=== PATIENT | female | born 1990 | race Caucasian/White ===

== ENCOUNTER 2017-07-29 16:11 | Day surgery (SDC) | payer BC, SELFPAY ==
[2017-07-29 16:41] VITALS: BMI 34.0
[2017-07-29 16:55] VITALS: BP 124/68; TEMP 98.8
--- NOTE | 2017-07-29 17:30 | PDOC.LDHP ---
Labor and Delivery H&P Chief complaint: decreased movement, other HPI: 27 year old W with no HX PTB arrives as a patient of Dr Alfonso for decresaed FM eval. No CTX, no LOF, no trauma. No PIH sxs. Last active FM at 1315 or so. Has HX GDM on oral metformin 500mg po BID. States sugars under good control. Current gestational age (weeks): 36 (6 days) Due date: 08/20/17 Dating criteria: last menstrual period Current complications: gestational diabetes Past Medical History: HX "calcium stones (renal) Current medications: other (matfromin 500 BID) Previous surgical history: other (Tonsills 2014) Allergies/Adverse Reactions: Allergies Allergy/AdvReac Type Severity Reaction Status Date / Time No Known Allergies Allergy Verified 07/29/17 16:57 Social history: none - Physical Exam Vital signs reviewed and normal: yes General: NAD Heart: RRR Lungs: CTAB Abdomen: gravid FHT: category 1 [place] contractions every: low amplitude contactions about every 6-8 min - Assessment Decreased FM at 36.6 weeks, GDM HX (oral meds). Audible FM heard on dopller during NST. NST reactive with baseline in 150s. Accels present. - Plan Plan: observation in L&D (NST continuation although already meets reactive criteria. RN to assess CX Kick count info given. Defer BPP as NST is reactive.)
--- NOTE | 2017-07-29 18:04 | PDOC.EVN ---
Event Note - Event Note Event Note: @1805: Cat 1 dtrip. CX was 1.5 cm. No evidence labor or issue. Vitals stable. OK for outpatient care.
== END 2017-07-29 18:00 | disposition home or self-care (01) ==
LOC: L&D/OP 16:11
PROVIDERS: ATTEND Obstetrics & Gynecology
DX: O36.8130 Decreased fetal movements, third trimester, not applicable or unspecified (principal); O24.419 Gestational diabetes mellitus in pregnancy, unspecified control; Z3A.36 36 weeks gestation of pregnancy; Z79.84 Long term (current) use of oral hypoglycemic drugs; Z79.899 Other long term (current) drug therapy; Z87.442 Personal history of urinary calculi; Z87.891 Personal history of nicotine dependence
CPT/HCPCS: 59025

== ENCOUNTER 2017-08-03 12:42 | Inpatient (IN) | payer BC ==
[2017-08-03 14:01] VITALS: BMI 34.1
[2017-08-03] MEDS ORDERED: Promethazine HCl 25 MG/ML VIAL IM PRN ×2 (14:11→17:52)
[2017-08-03] MEDS ORDERED: Ibuprofen 800 MG TAB PO PRN (14:11)
[2017-08-03] MEDS ORDERED: Lidocaine 1% (PF) 30 ML VIAL SC PRN (14:11)
[2017-08-03] MEDS ORDERED: LR / Pitocin 40 units/1000 ml 1,000 ML IV PRN (14:11)
[2017-08-03] MEDS ORDERED: Ondansetron HCl/PF 4 MG/2 ML Vial IVP PRN ×3 (14:11→21:35)
[2017-08-03] MEDS ORDERED: Acetaminophen/Codeine 30-300mg Tablet PO PRN ×4 (14:11→21:35)
[2017-08-03] MEDS ORDERED: LR 500 ML/Oxytocin 10 units 500 ML IV SCH ×2 (14:15)
--- NOTE | 2017-08-03 14:16 | PDOC.LDHP ---
Labor and Delivery H&P Chief complaint: contractions HPI: Pt is a 27yo @ 37+ weeks w spont onset of labor. Seen in clinic this AM was 4cm, now 6cm. Desires low intervention. Current gestational age (weeks): 37 Due date: 08/20/17 Grav: 2 Para: 1 OB History Details: x 1 in 2008 Current complications: gestational diabetes (A2 controlled w Metformin BID) Abnormal US findings: No Past Medical History: none Current medications: pre-marga vitamins, other (Metformin 500mg BID) Previous surgical history: none Allergies/Adverse Reactions: Allergies Allergy/AdvReac Type Severity Reaction Status Date / Time No Known Allergies Allergy Verified 08/03/17 13:15 Social history: none - Physical Exam Vital signs reviewed and normal: yes General: breathing through contractions Lungs: nonlabored breathing Abdomen: gravid Extremeties: no edema FHT: category 1 [place] contractions every: 3 - Vaginal Exam cm dilated: 6 Effacement: 75% - OB Labs Blood type: O RH: positive Antibody Screen: negative HIV: negative RPR: negative HEPSAg: negative 1 hour GCT: positive 3 hour GTT: positive GBS: negative Rubella: immune - Assessment L&D Assessment: term patient in labor - Plan Plan: admit to L&D, labor augmentation if indicated, informed consent obtained, anesthesia consult for pain management (if desired)
[2017-08-03 14:22] LABS: Hematocrit 34.9 % (36.0-47.0); Mean Platelet Volume 10.4 fL (7.4-10.4); Red Blood Cell (RBC) Count 4.34 mill/uL (4.20-5.40); White Blood Cell (WBC) Count 9.2 thou/uL (4.8-10.8)
--- NOTE | 2017-08-03 17:01 | PDOC.LDPN ---
Labor & Delivery Progress Note - Subjective Subjective: painful contractions - Objective Vital signs reviewed and normal: yes General: breathing through contractions Dilation: 7 Effacement: 75% Station: -1 FHT: category 1 [place] contractions every: 3 AROM: clear fluid - Assessment (1) 37 weeks gestation of Code(s): Z3A.37 - 37 WEEKS GESTATION OF Current Visit: Yes Status : Acute Plan: continue plan of care
[2017-08-03] MEDS ORDERED: Fentanyl 4 mcg/Marc 0.1% Cadd 100 ML ONE (17:23)
[2017-08-03] MEDS ORDERED: Acetaminophen 325 MG TAB PO PRN (17:52)
[2017-08-03] MEDS ORDERED: diphenhydrAMINE 50 MG/ML VIAL IVP PRN (17:52)
[2017-08-03] MEDS ORDERED: Lactated Ringer's 500 ML IV PRN (17:52)
[2017-08-03] MEDS ORDERED: Naloxone HCl 0.4 mg/ml Vial IVP PRN ×2 (17:52)
[2017-08-03] MEDS ORDERED: ePHEDrine/0.9% NaCl/PF SYRINGE 50 mg/10 ml SLOW IVP PRN (17:52)
[2017-08-03] MEDS ORDERED: Eucerin (Mineral Oil/Petrolatum,White) 30 gm Jar TOP PRN (17:52)
[2017-08-03] MEDS ORDERED: Communication Order-Pharmacy FS SCH (18:00)
[2017-08-03] MEDS ORDERED: Fentanyl 4mcg/Marcaine 0.1% Cassette 100 ML EPIDURAL SCH (18:00)
[2017-08-03] MEDS ORDERED: Lactated Ringer's 1,000 ML IV SCH (18:45)
[2017-08-03] MEDS ORDERED: Lidocaine 1% (PF) 30 ML VIAL ONE (18:46)
--- NOTE | 2017-08-03 19:12 | PDOC.OPDEL ---
OB Operative/Delivery Note Delivery Dr/Surgeon: Kaden Pre-Delivery Diagnosis: active labor Procedure/Post Delivery Dx: spontaneous vaginal delivery Weeks gestation: 37 Anesthesia: epidural - Findings A Sex: female - 1 min: 9 - 5 min: 10 - Additional Findings/Plan Placenta delivered: spontaneous Repaired Obstetrical Laceration: none Post delivery plan: routine recovery
[2017-08-03] MEDS ORDERED: Milk Of Magnesia 30 ML UDCUP PO PRN (21:35)
[2017-08-03] MEDS ORDERED: Bisacodyl 10 MG SUPP PR PRN (21:35)
[2017-08-03] MEDS ORDERED: Benzocaine/Menthol 20-0.5% 60 ML CAN TOP PRN (21:35)
[2017-08-03] MEDS ORDERED: LR / Pitocin 40 units/1000 ml 1,000 ML IV SCH (21:35)
[2017-08-03] MEDS ORDERED: Lanolin Ointment 7 GM TUBE TOP PRN (21:35)
[2017-08-03] MEDS ORDERED: Preparation H Ointment 28 GM TUBE PR PRN (21:35)
[2017-08-03] MEDS ORDERED: diphenhydrAMINE 25 MG CAP PO PRN (21:35)
[2017-08-04] MEDS: Docusate (Surfak) 240 MG CAP PO SCH ×3 (01:59→21:47)
[2017-08-04 05:45] LABS: Hematocrit 33.4 % (36.0-47.0); Mean Platelet Volume 9.7 fL (7.4-10.4); Red Blood Cell (RBC) Count 4.16 mill/uL (4.20-5.40); White Blood Cell (WBC) Count 12.3 thou/uL (4.8-10.8)
[2017-08-04] MEDS: Ibuprofen 800 MG TAB PO SCH ×4 (06:23→21:47)
--- NOTE | 2017-08-04 09:23 | PDOC.PP ---
Post Progress Note Post Day #: 1 Subjective: PPD #1 doing well, desires DC home later today if possible, otherwise tomorrow AM. No concerns, breast feeding well. PO intake tolerated: yes Flatus: yes Ambulation: yes Vital Signs (12 hours) Temp Pulse Resp BP 08/04/17 08:00 98.9 F 98 18 123/58 L 08/04/17 03:58 98.6 F 117 H 20 129/68 08/04/17 00:15 98.4 F 118 H 20 114/60 08/03/17 23:15 98.5 F 115 H 20 110/62 08/03/17 22:15 98.9 F 115 H 22 H 118/51 L Weight Weight 199 lb - Physical Examination Respiratory: non-labored breathing Abdominal: no distention Fundus firm & at: below umb Skin: no rash Neurological: no gross focal deficits Psychiatric: A&Ox3, normal affect Result Diagrams: 08/04/17 05:01 Additional Labs: Post Labs Blood Type O POSITIVE 08/03/17 13:30 Hep Bs Antigen Non-Reactive S/CO (NonReactive) 08/03/17 13:30 (1) 37 weeks gestation of Code(s): Z3A.37 - 37 WEEKS GESTATION OF Status: Acute (2) Vaginal delivery Code(s): O80 - ENCOUNTER FOR FULL-TERM UNCOMPLICATED DELIVERY Status: Acute - Assessment/Plan PPD Doing well no concerns, poss DC today vs tomorrow AM.
[2017-08-04] MEDS: Prenatal Vitamin 1 TAB PO SCH (09:26)
[2017-08-04] MEDS: Ferrous Sulfate 325 MG TAB PO SCH ×2 (09:26→17:48)
[2017-08-04] MEDS ORDERED: Bupivacaine/Epinephrine 0.25% 30 ML VIAL ONE (10:58)
[2017-08-05] MEDS: Ibuprofen 800 MG TAB PO SCH (05:55)
[2017-08-05 07:51] VITALS: BP 102/50; TEMP 98.2
[2017-08-05] MEDS: Docusate (Surfak) 240 MG CAP PO SCH (08:18)
[2017-08-05] MEDS: Prenatal Vitamin 1 TAB PO SCH (08:18)
[2017-08-05] MEDS: Ferrous Sulfate 325 MG TAB PO SCH (08:19)
--- NOTE | 2017-08-05 08:26 | PDOC.PP ---
Post Progress Note Post Day #: 2 Subjective: no concerns. PO intake tolerated: yes Flatus: yes Ambulation: yes Vital Signs (12 hours) Temp Pulse Resp BP 08/05/17 07:49 98.2 F 89 18 102/50 L Weight Weight 199 lb - Physical Examination Respiratory: non-labored breathing Abdominal: no distention Extremities: negative homans (B) Neurological: no gross focal deficits Psychiatric: A&Ox3, normal affect Result Diagrams: 08/04/17 05:01 Additional Labs: Post Labs Blood Type O POSITIVE 08/03/17 13:30 Hep Bs Antigen Non-Reactive S/CO (NonReactive) 08/03/17 13:30 (1) 37 weeks gestation of Code(s): Z3A.37 - 37 WEEKS GESTATION OF Status: Acute (2) Vaginal delivery Code(s): O80 - ENCOUNTER FOR FULL-TERM UNCOMPLICATED DELIVERY Status: Acute - Assessment/Plan PPD2 doing well, no concerns, DC home today.
== END 2017-08-05 12:55 | disposition home or self-care (01) | DRG 775 ==
LOC: L&D/OP 12:42 → L&D 13:23 → 3SW 22:24
PROVIDERS: ADMIT Obstetrics & Gynecology; ATTEND Obstetrics & Gynecology
PROC: 10E0XZZ Delivery of Products of Conception, External Approach (ICD-10-PCS; principal; 2017-08-03)
PROC: 4A0HXCZ Measurement of Products of Conception, Cardiac Rate, External Approach (ICD-10-PCS; 2017-08-03)
DX: O24.425 Gestational diabetes mellitus in childbirth, controlled by oral hypoglycemic drugs (principal); Z37.0 Single live birth; Z3A.37 37 weeks gestation of pregnancy
CPT/HCPCS: 36415; 36416; 51702; 85027; 87340; 99282; J2001

== ENCOUNTER 2017-08-31 08:05 | Emergency (ER) | payer BC ==
[2017-08-31 08:58] LABS: Bilirubin Negative (Negative); Blood, Urine Large (Negative); Clarity TURBID (Clear); Glucose, Urine (Dipstick) Negative (Negative); Leukocyte Large (Negative); Nitrite Positive (Negative); Protein, Urine (Dipstick) 300 mg/dL (Neg-Trace); Specific Gravity, Urine 1.019 (1.002-1.036); Urobilinogen 0.2 mg/dL (0.2-1.0)
[2017-08-31 09:00] LABS: Bacteria/HPF 3+ HPF (None Seen); RBC/HPF 21-50 HPF (0-3)
[2017-08-31 09:01] LABS: Pathc Cast-AUWi Flag 4.26 (0-2.49); Yeast-AUWi Flag 609.4 (0-25.0)
[2017-08-31 09:12] LABS: Hyaline Casts/LPF 0-3 HYALINE CAST LPF (0-3 Hyaline); Manual Microscopic Reviewed? No Path Casts Seen; Yeast-All Forms None Seen HPF (None Seen)
[2017-08-31 09:19] LABS: #Eosinphils 0.1 thou/uL (0.0-0.7); #Lymphocytes 1.8 thou/uL (1.20-3.40); #Neutrophils 10.1 thou/uL (1.40-6.50); %Basophils 0.3 % (0.0-1.0); %Eosinophils 0.5 % (0.0-10.0); %Lymphocytes 13.6 % (21.0-51.0); %Monocytes 7.5 % (0.0-10.0); %Neutrophils 78.1 % (42.0-75.0); Hemoglobin 13.3 g/dL (12.0-16.0); Mean Corpuscular HGB CONC 32.7 g/dL (32.0-36.0); Mean Corpuscular Hemoglobin 26.2 pg (27.0-31.0); Mean Corpuscular Volume 80.2 fl (81.0-99.0); Mean Platelet Volume 8.2 fL (7.4-10.4); Platelet Count 197 thou/uL (130-400); RBC Distribution Width 13.3 % (11.5-14.5); Red Blood Cell (RBC) Count 5.06 mill/uL (4.20-5.40); White Blood Cell (WBC) Count 12.9 thou/uL (4.8-10.8)
[2017-08-31 09:36] LABS: ALT (SGPT) 14 U/L (8-55); AST (SGOT) 14 U/L (5-34); Albumin 4.3 g/dL (3.5-5.0); Alkaline Phosphatase 116 U/L (40-150); Anion Gap 14 mmol/L (10-20); BUN (Urea Nitrogen) 12 mg/dL (7.0-18.7); Bilirubin, Total 1.1 mg/dL (0.2-1.2); Calc. Creatinine Clearance 0 mL/min (70-130); Calcium 9.5 mg/dL (7.8-10.44); Carbon Dioxide 25 mmol/L (22-29); Chloride 105 mmol/L (98-107); Estimated GFR-MDRD Greater than 90; Globulin 3.7 g/dL (2.4-3.5); Glucose 130 mg/dL (70-105); Potassium 4.2 mmol/L (3.5-5.1); Sodium 140 mmol/L (136-145)
[2017-08-31] MEDS ORDERED: Sulfameth/Trimethoprim DS 800-160mg TAB ONE (09:48)
[2017-08-31] MEDS ORDERED: cefTRIAXone\\ROCEPHIN 1 GM VIAL IM SCH (10:00)
[2017-08-31] MEDS ORDERED: Lidocaine 1% PF 5 ML VIAL ONE (10:17)
== END 2017-08-31 10:40 | disposition home or self-care (01) ==
LOC: ERS 08:05
DX: O86.20 Urinary tract infection following delivery, unspecified (principal); O99.89 Other specified diseases and conditions complicating pregnancy, childbirth and the puerperium; R50.9 Fever, unspecified
CPT/HCPCS: 36415; 80053; 81003; 81015; 85025; 87077; 87086; 87186; 96372; J0696; J2001

== ENCOUNTER 2021-03-13 17:26 | Emergency (ER) | payer BC ==
[~2021-03-13 17:26] MED LIST: Iopamidol-370 76% 500 ML 1 ML ONE
[2021-03-13] MEDS ORDERED: Dexamethasone 4 mg/ml Vial ONE (17:44)
[2021-03-13] MEDS ORDERED: Aspirin Chewable 81 MG TAB ONE (17:44)
[2021-03-13 18:10] LABS: #Basophils 0.1 thou/uL (0.0-0.2); #Lymphocytes 0.7 thou/uL (1.20-3.40); #Monocytes 0.2 thou/uL (0.11-0.59); #Neutrophils 1.8 thou/uL (1.40-6.50); %Eosinophils 0.4 % (0.0-10.0); %Lymphocytes 24.8 % (21.0-51.0); %Monocytes 6.9 % (0.0-10.0); Mean Corpuscular HGB CONC 34.8 g/dL (32.0-36.0); Mean Corpuscular Hemoglobin 28.4 pg (27.0-31.0); Mean Corpuscular Volume 81.6 fL (78.0-98.0); Platelet Count 109 thou/uL (130-400); RBC Distribution Width 11.9 % (11.5-14.5); Red Blood Cell (RBC) Count 4.94 mill/uL (4.20-5.40); White Blood Cell (WBC) Count 2.8 thou/uL (4.8-10.8)
[2021-03-13 18:35] LABS: ALT (SGPT) 63 U/L (8-55); AST (SGOT) 90 U/L (5-34); Albumin 4.4 g/dL (3.5-5.0); Alkaline Phosphatase 117 U/L (40-110); Anion Gap 18 mmol/L (10-20); BUN (Urea Nitrogen) 5 mg/dL (7.0-18.7); Bilirubin, Total 0.5 mg/dL (0.2-1.2); CK (CPK) 206 U/L (29-168); Calc. Creatinine Clearance 0 mL/min (70-130); Calcium 8.3 mg/dL (7.8-10.44); Carbon Dioxide 20 mmol/L (22-29); Chloride 101 mmol/L (98-107); Globulin 3.6 g/dL (2.4-3.5); Glucose 113 mg/dL (70-105); Lipase 91 U/L (8-78); Potassium 4.3 mmol/L (3.5-5.1); Sodium 135 mmol/L (136-145)
== END 2021-03-13 20:45 | disposition home or self-care (01) ==
LOC: ERS 17:26
DX: B34.2 Coronavirus infection, unspecified (principal)
CPT/HCPCS: 71045; 71275; 80053; 82550; 83690; 84484; 85025; 93005; 96374; J1100; Q9967

== ENCOUNTER 2024-08-10 13:43 | Emergency (ER) | payer BC ==
[2024-08-10] MEDS ORDERED: HYDROcodone/Acetaminophen 5/325 mg Tablet ONE (14:49)
[2024-08-10] MEDS ORDERED: Ketorolac Tromethamine 30 MG (1 mL) VIAL ONE (16:29)
== END 2024-08-10 17:00 | disposition home or self-care (01) ==
LOC: ERS 13:43
DX: S82.51XA Displaced fracture of medial malleolus of right tibia, initial encounter for closed fracture (principal); S93.401A Sprain of unspecified ligament of right ankle, initial encounter; S90.511A Abrasion, right ankle, initial encounter; W10.9XXA Fall (on) (from) unspecified stairs and steps, initial encounter; Y93.01 Activity, walking, marching and hiking; Y92.480 Sidewalk as the place of occurrence of the external cause
CPT/HCPCS: 96372; 99283; J1885